=== PATIENT | male | born 1995 | race Caucasian/White ===

== ENCOUNTER 2019-09-05 07:52 | Emergency (ER) | payer BC, OTHER ==
--- NOTE | 2019-09-05 08:41 | ER ---
Nurse's Notes [facility] Name: Micky Urena Jr Age: 24 yrs Sex: Male : 1995 Arrival Date: 09/05/2019 Time: 08:02 Bed 12 Private MD: None, None Diagnosis: Urethral discharge Presentation: 09/04 08:27 Chief complaint: Burning with urination and white discharge from penis x 2-3 days. hb Reports having unprotected sex 1-2 weeks ago. Coronavirus screen: Proceed with normal triage. Ebola Screen: No symptoms or risks identified at this time. Initial Sepsis Screen: Does the patient meet any 2 criteria? No. Patient's initial sepsis screen is negative. Does the patient have a suspected source of infection? No. Patient's initial sepsis screen is negative. Risk Assessment: Do you want to hurt yourself or someone else? Patient reports no desire to harm self or others. Onset of symptoms was September 03, 2019. 08:27 Method Of Arrival: Ambulatory hb 08:27 Acuity: MADDI 4 hb Triage Assessment: 08:29 General: Appears in no apparent distress. Behavior is calm, cooperative. Pain: Pain hb currently is 2 out of 10 on a pain scale. Neuro: Level of Consciousness is awake, alert, obeys commands. Cardiovascular: Patient's skin is warm and dry. Respiratory: Respiratory effort is even, unlabored, Respiratory pattern is regular, symmetrical. : Reports burning with urination, discharge, from penis that is white. Historical: - Allergies: 08:50 PENICILLINS; hb - Home Meds: 08:29 None [Active]; hb - PMHx: 08:29 None; hb - PSHx: 08:29 None; hb - Immunization history:: Adult Immunizations up to date. - Social history:: Smoking status: Patient reports the use of cigarette tobacco products, smokes one-half pack cigarettes per day. - Family history:: not pertinent. Screenin:30 Abuse screen: Denies threats or abuse. Denies injuries from another. Nutritional hb screening: No deficits noted. Tuberculosis screening: No symptoms or risk factors identified. Fall Risk None identified. Assessment: 08:30 General: see triage. hb 08:59 Reassessment: Pt allergic to PCN, ok to admin rocephin, monitor for reaction for 30 hb mins per ELVIA Barnett. Discharge pending IM injection wait time. Vital Signs: 08:27 BP 118 / 68; Pulse 61; Resp 16; Temp 97.3; Pulse Ox 100% ; Weight 65.77 kg; Height 5 hb ft. 10 in. (177.80 cm); Pain 2/10; 08:27 Body Mass Index 20.81 (65.77 kg, 177.80 cm) hb ED Course: 08:02 Patient arrived in ED. mr 08:02 None, None is Private Physician. mr 08:23 Richard Noriega MD is Attending Physician. [facility] 08:26 Judith Suarez, RN is Primary Nurse. hb 08:28 Triage completed. hb 08:30 Arm band placed on. hb 08:30 Patient has correct armband on for positive identification. hb 08:59 Urine Culture Sent. hb 09:01 No provider procedures requiring assistance completed. Patient did not have IV access hb during this emergency room visit. Administered Medications: 08:50 Drug: Rocephin (cefTRIAXone) 1 grams Route: IM; Site: right deltoid; hb 09:25 Follow up: Response: Adverse reaction, Physician notified hb 08:50 Drug: Zithromax 1 grams Route: PO; hb 09:26 Follow up: Response: No adverse reaction hb Outcome: 08:40 Discharge ordered by . isidro 09:25 Discharged to home ambulatory. hb 09:25 Condition: stable 09:25 Discharge instructions given to patient, Instructed on discharge instructions, follow up and referral plans. medication usage, Demonstrated understanding of instructions, follow-up care, medications, Prescriptions given X 1. 09:28 Patient left the ED. hb Signatures: Richard Noriega MD MD cha Rivera, Mary Judith Suarez, RN RN hb Corrections: (The following items were deleted from the chart) 08:50 08:29 Allergies: No Known Allergies; hb hb
--- NOTE | 2019-09-05 08:41 | EDPHYS ---
Physician Documentation [facility] Name: Micky Urena Jr Age: 24 yrs Sex: Male : 1995 Arrival Date: 09/05/2019 Time: 08:02 Bed 12 Private MD: None, None ED Physician Richard Noriega HPI: 09/04 08:38 This 24 yrs old Male presents to ER via Ambulatory with complaints of STD isidro Exposure. 08:38 The patient presents with a known STD exposure, with a history of engaging in sex with isidro multiple partners. Onset: The symptoms/episode began/occurred 3 day(s) ago. Modifying factors: The symptoms are alleviated by nothing, the symptoms are aggravated by urinating. Associated signs and symptoms: The patient has no apparent associated signs or symptoms. Severity of symptoms: At their worst the symptoms were mild, moderate, in the emergency department the symptoms are unchanged. The patient has not experienced similar symptoms in the past. Historical: - Allergies: 08:50 PENICILLINS; hb - Home Meds: 08:29 None [Active]; hb - PMHx: 08:29 None; hb - PSHx: 08:29 None; hb - Immunization history:: Adult Immunizations up to date. - Social history:: Smoking status: Patient reports the use of cigarette tobacco products, smokes one-half pack cigarettes per day. - Family history:: not pertinent. ROS: 08:38 Constitutional: Negative for fever, chills, and weight loss, Eyes: Negative for injury, isidro pain, redness, and discharge, ENT: Negative for injury, pain, and discharge, Neck: Negative for injury, pain, and swelling, Cardiovascular: Negative for chest pain, palpitations, and edema, Respiratory: Negative for shortness of breath, cough, wheezing, and pleuritic chest pain, Abdomen/GI: Negative for abdominal pain, nausea, vomiting, diarrhea, and constipation, Back: Negative for injury and pain, MS/Extremity: Negative for injury and deformity, Skin: Negative for injury, rash, and discoloration, Neuro: Negative for headache, weakness, numbness, tingling, and seizure, Psych: Negative for depression, anxiety, suicide ideation, homicidal ideation, and hallucinations, Allergy/Immunology: Negative for hives, rash, and allergies, Endocrine: Negative for neck swelling, polydipsia, polyuria, polyphagia, and marked weight changes, Hematologic/Lymphatic: Negative for swollen nodes, abnormal bleeding, and unusual bruising. 08:38 : Positive for urinary symptoms, burning with urination, penile discharge. Exam: 08:38 Constitutional: This is a well developed, well nourished patient who is awake, alert, isidro and in no acute distress. Head/Face: Normocephalic, atraumatic. Eyes: Pupils equal round and reactive to light, extra-ocular motions intact. Lids and lashes normal. Conjunctiva and sclera are non-icteric and not injected. Cornea within normal limits. Periorbital areas with no swelling, redness, or edema. ENT: Nares patent. No nasal discharge, no septal abnormalities noted. Tympanic membranes are normal and external auditory canals are clear. Oropharynx with no redness, swelling, or masses, exudates, or evidence of obstruction, uvula midline. Mucous membranes moist. Neck: Trachea midline, no thyromegaly or masses palpated, and no cervical lymphadenopathy. Supple, full range of motion without nuchal rigidity, or vertebral point tenderness. No Meningismus. Chest/axilla: Normal chest wall appearance and motion. Nontender with no deformity. No lesions are appreciated. Cardiovascular: Regular rate and rhythm with a normal S1 and S2. No gallops, murmurs, or rubs. Normal PMI, no JVD. No pulse deficits. Respiratory: Lungs have equal breath sounds bilaterally, clear to auscultation and percussion. No rales, rhonchi or wheezes noted. No increased work of breathing, no retractions or nasal flaring. Abdomen/GI: Soft, non-tender, with normal bowel sounds. No distension or tympany. No guarding or rebound. No evidence of tenderness throughout. Back: No spinal tenderness. No costovertebral tenderness. Full range of motion. Skin: Warm, dry with normal turgor. Normal color with no rashes, no lesions, and no evidence of cellulitis. MS/ Extremity: Pulses equal, no cyanosis. Neurovascular intact. Full, normal range of motion. Neuro: Awake and alert, GCS 15, oriented to person, place, time, and situation. Cranial nerves II-XII grossly intact. Motor strength 5/5 in all extremities. Sensory grossly intact. Cerebellar exam normal. Normal gait. Psych: Awake, alert, with orientation to person, place and time. Behavior, mood, and affect are within normal limits. 08:38 : CVA tenderness, is absent, Male external genitalia: Circumcision noted. Bladder: is normal, Sexual behavior: the patient is sexually active, and reports multiple partners. Vital Signs: 08:27 BP 118 / 68; Pulse 61; Resp 16; Temp 97.3; Pulse Ox 100% ; Weight 65.77 kg; Height 5 hb ft. 10 in. (177.80 cm); Pain 2/; 08:27 Body Mass Index 20.81 (65.77 kg, 177.80 cm) hb MDM: 08:25 Patient medically screened. [facility] 08:40 Data reviewed: vital signs, nurses notes, lab test result(s), urinalysis. [facility] 09/04 08:37 Order name: Urine Culture [facility] 09/04 09:02 Order name: Urine Dipstick--Ancillary (enter results) 09/04 08:37 Order name: Urine Dipstick-Ancillary (obtain specimen); Complete Time: 08:48 [facility] Administered Medications: 08:50 Drug: Rocephin (cefTRIAXone) 1 grams Route: IM; Site: right deltoid; 09:25 Follow up: Response: Adverse reaction, Physician notified 08:50 Drug: Zithromax 1 grams Route: PO; hb 09:26 Follow up: Response: No adverse reaction hb Disposition: 09/05/19 08:40 Discharged to Home. Impression: Urethral discharge. - Condition is Stable. - Discharge Instructions: Sexually Transmitted Disease, Sexually Transmitted Disease, [id number], Urethritis, Adult. - Prescriptions for Doxycycline Hyclate 100 mg Oral Tablet - take 1 tablet by ORAL route every 12 hours; 20 tablet. - Medication Reconciliation Form, Thank You Letter, Antibiotic Education, Prescription Opioid Use form. - Follow up: Private Physician; When: 2 - 3 days; Reason: Recheck today's complaints, Continuance of care, Re-evaluation by your physician. - Problem is new. - Symptoms have improved. Signatures: Dispatcher [employer] EDRichard Jj MD MD cha Baxter, Heather, RN RN Corrections: (The following items were deleted from the chart) 08:50 08:29 Allergies: No Known Allergies; hb hb 09:28 08:40 09/05/2019 08:40 Discharged to Home. Impression: Urethral discharge. Condition is hb Stable. Forms are Medication Reconciliation Form, Thank You Letter, Antibiotic Education, Prescription Opioid Use. Follow up: Private Physician; When: 2 - 3 days; Reason: Recheck today's complaints, Continuance of care, Re-evaluation by your physician. Problem is new. Symptoms have improved. isidro
[2019-09-05] MEDS ORDERED: LIDOCAINE 1% MPF 2 ML AMPULE ONE (08:50)
[2019-09-05] MEDS ORDERED: CEFTRIAXONE 1000 MG/VIAL ONE (08:50)
[2019-09-05] MEDS ORDERED: AZITHROMYCIN 250 MG TAB ONE (08:52)
[2019-09-05 09:08] LABS: Urine Blood TRACE (NEG); Urine Glucose NEGATIVE (NEG); Urine Protein NEGATIVE (NEG)
== END 2019-09-05 09:28 | disposition home or self-care (01) ==
LOC: ER 07:52
DX: R36.9 Urethral discharge, unspecified (principal); Z88.0 Allergy status to penicillin
CPT/HCPCS: 87088; 81003; 96372; 99283; J2001; 87086